=== PATIENT | female | born 1935 | race Caucasian/White ===

== ENCOUNTER 2019-03-13 11:36 | Emergency (ER) | payer MEDICARE ==
[~2019-03-13 11:36] MED LIST: ACET325T51 PO; AMLO1CAP6 PO; CITA20TA17 PO; DOCU250C14 PO; ENOX40DI8 SQ; FERR325T22 PO; MAG360OR93 PO; MULT-1278 PO; OLAN2.5T3 PO; ONDA4TAB4 PO; TYL3 PO
== END 2019-03-13 15:25 | disposition home or self-care (01) ==
LOC: EDH 11:36
DX: S70.02XA Contusion of left hip, initial encounter (principal); S42.202D Unspecified fracture of upper end of left humerus, subsequent encounter for fracture with routine healing; I10 Essential (primary) hypertension; Z96.649 Presence of unspecified artificial hip joint; X58.XXXA Exposure to other specified factors, initial encounter; Y93.89 Activity, other specified; Y92.89 Other specified places as the place of occurrence of the external cause; Y99.8 Other external cause status
CPT/HCPCS: 71045; 73030; 73060; 73502

== ENCOUNTER 2020-12-11 20:16 | Inpatient (IN) | payer MEDICARE ==
[~2020-12-11] VITALS: Ht 149.9 cm; Wt 39.0 kg
[2020-12-11 21:47] LABS: BASOPHILS % (AUTO) 0.4 % (0.0-5.0); EOSINOPHILS % (AUTO) 0.5 % (0.0-8.0); HEMATOCRIT 33.9 % (36-48); LYMPHOCYTES % (AUTO) 21.6 % (21.0-51.0); MEAN CORPUSCULAR HEMOGLOBIN 29.3 pg (27.0-33.0); MEAN CORPUSCULAR HGB CONC 32.2 g/dL (32.0-36.0); MEAN CORPUSCULAR VOLUME 91.1 fL (79-99); MONOCYTES % (AUTO) 14.2 % (3.0-13.0); PLATELET COUNT (AUTO) 319 K/uL (130-400); RED BLOOD CELL COUNT(AUTO) 3.72 MIL/uL (4.00-5.50); RED CELL DISTRIBUTION WIDTH 14.7 % (11.0-15.5); WHITE BLOOD COUNT (AUTO) 7.3 K/uL (4.8-10.8)
[2020-12-11 21:59] LABS: CREATININE 0.8 mg/dL (0.5-1.5)
[2020-12-11 22:04] LABS: ALBUMIN 1.2 g/dL (3.5-5.0); BILIRUBIN,TOTAL 0.3 mg/dL (0.2-1.0); TOTAL PROTEIN, SERUM 5.3 g/dL (6.0-8.3)
[2020-12-11 22:09] LABS: INR 1.18 (0.85-1.15); PARTIAL THROMBOPLASTIN TIME 26.7 SEC (26.3-35.5); PROTHROMBIN TIME 12.2 SEC (9.6-11.6)
[2020-12-11 22:10] LABS: B-TYPE NATRIURETIC PEPTIDE 88 pg/mL (0-100)
[2020-12-11] MEDS ORDERED: ACETAMINOPHEN 325 MG TAB PO PRN ×2 (23:45)
[2020-12-11] MEDS ORDERED: ENOXAPARIN SODIUM 60 MG/0.6 ML SQ ONE (23:50)
[2020-12-12 02:05] VITALS: BP 112/60
[2020-12-12 04:40] VITALS: BP 109/62
[2020-12-12 05:24] LABS: BASOPHILS % (AUTO) 0.5 % (0.0-5.0); EOSINOPHILS % (AUTO) 1.1 % (0.0-8.0); HEMATOCRIT 29.6 % (36-48); LYMPHOCYTES % (AUTO) 24.9 % (21.0-51.0); MEAN CORPUSCULAR HEMOGLOBIN 29.9 pg (27.0-33.0); MEAN CORPUSCULAR HGB CONC 33.4 g/dL (32.0-36.0); MEAN CORPUSCULAR VOLUME 89.4 fL (79-99); NEUTROPHILS % (AUTO) 57.2 % (40.0-77.0); PLATELET COUNT (AUTO) 249 K/uL (130-400); RED BLOOD CELL COUNT(AUTO) 3.31 MIL/uL (4.00-5.50); RED CELL DISTRIBUTION WIDTH 14.8 % (11.0-15.5); WHITE BLOOD COUNT (AUTO) 6.4 K/uL (4.8-10.8)
[2020-12-12 05:54] LABS: BILIRUBIN,TOTAL 0.3 mg/dL (0.2-1.0); CREATININE 0.6 mg/dL (0.5-1.5); POTASSIUM 4.1 mmol/L (3.5-5.1); TOTAL PROTEIN, SERUM 4.5 g/dL (6.0-8.3)
[2020-12-12 08:23] VITALS: BP 116/67
[2020-12-12] MEDS: FAMOTIDINE 20MG VIAL IV SCH ×2 (10:00→19:45)
[2020-12-12] MEDS: ENOXAPARIN SODIUM 80 MG/0.8 ML SQ SCH ×2 (10:00→19:46)
[2020-12-12 12:38] VITALS: BP 118/69
[2020-12-12] MEDS ORDERED: MEGE400O4 PO (14:39)
[2020-12-12] MEDS ORDERED: ALBU1.252 IH (14:39)
[2020-12-12] MEDS ORDERED: FURO40TA5 PO (14:39)
[2020-12-12] MEDS ORDERED: DOCU250C14 PO (14:39)
[2020-12-12] MEDS ORDERED: FERR325T22 PO (14:39)
[2020-12-12] MEDS ORDERED: LISI5TAB21 PO (14:39)
[2020-12-12] MEDS ORDERED: POLY17PO4 PO (14:39)
[2020-12-12] MEDS ORDERED: MAG/ALUM/SIMETH 30 ML UDCUP PO SCH (15:45)
[2020-12-12] MEDS ORDERED: MAG/ALUM/SIMETH 30 ML UDCUP ONE (16:09)
[2020-12-12] MEDS: FERROUS SULFATE 325 MG TABLET.DR PO SCH (16:17)
[2020-12-12 17:17] VITALS: BP 112/73
[2020-12-12 19:25] VITALS: BP 108/63
[2020-12-12] MEDS: DOCUSATE CALCIUM 240 MG CAP PO SCH (19:46)
[2020-12-13] VITALS (8 sets, daily range): BP systolic 74–141; BP diastolic 45–70
[2020-12-13] MEDS: ONDANSETRON 4MG INJ IV PRN (00:12)
[2020-12-13 06:18] LABS: BASOPHILS % (AUTO) 0.4 % (0.0-5.0); EOSINOPHILS % (AUTO) 0.8 % (0.0-8.0); LYMPHOCYTES % (AUTO) 23.4 % (21.0-51.0); MEAN CORPUSCULAR HEMOGLOBIN 29.7 pg (27.0-33.0); MEAN CORPUSCULAR HGB CONC 33.2 g/dL (32.0-36.0); MEAN CORPUSCULAR VOLUME 89.3 fL (79-99); MONOCYTES % (AUTO) 13.6 % (3.0-13.0); NEUTROPHILS % (AUTO) 61.5 % (40.0-77.0); PLATELET COUNT (AUTO) 305 K/uL (130-400); RED BLOOD CELL COUNT(AUTO) 3.47 MIL/uL (4.00-5.50); RED CELL DISTRIBUTION WIDTH 14.7 % (11.0-15.5); WHITE BLOOD COUNT (AUTO) 7.9 K/uL (4.8-10.8)
[2020-12-13 06:31] LABS: CREATININE 0.6 mg/dL (0.5-1.5); POTASSIUM 4.3 mmol/L (3.5-5.1)
[2020-12-13] MEDS ORDERED: FUROSEMIDE 40 MG TABLET PO SCH (09:00)
[2020-12-13] MEDS: FAMOTIDINE 20MG VIAL IV SCH ×2 (09:09→21:09)
[2020-12-13] MEDS: POLYETHYLENE GLYCOL 3350 17 GM POWD.PACK PO SCH (09:09)
[2020-12-13] MEDS: LISINOPRIL 5 MG TABLET PO SCH (09:10)
[2020-12-13] MEDS: DOCUSATE CALCIUM 240 MG CAP PO SCH ×2 (09:10→21:09)
[2020-12-13] MEDS: APIXABAN 5 MG TABLET PO SCH (21:09)
[2020-12-14] VITALS (7 sets, daily range): BP systolic 74–166; BP diastolic 51–70
[2020-12-14] MEDS: LISINOPRIL 5 MG TABLET PO SCH ×2 (09:00→09:38)
[2020-12-14] MEDS: FAMOTIDINE 20MG VIAL IV SCH ×2 (09:37→20:20)
[2020-12-14] MEDS: APIXABAN 5 MG TABLET PO SCH ×2 (09:37→20:20)
[2020-12-14] MEDS: POLYETHYLENE GLYCOL 3350 17 GM POWD.PACK PO SCH (09:38)
[2020-12-14] MEDS: DOCUSATE CALCIUM 240 MG CAP PO SCH ×2 (09:38→19:29)
[2020-12-14] MEDS: FERROUS SULFATE 325 MG TABLET.DR PO SCH (09:38)
[2020-12-14] MEDS: ONDANSETRON 4MG INJ IV PRN (13:56)
[2020-12-14] MEDS ORDERED: 0.9%NACL 1000ML 1,000 ML IV SCH (14:45)
[2020-12-14 15:05] LABS: BASOPHILS % (AUTO) 0.3 % (0.0-5.0); EOSINOPHILS % (AUTO) 0.1 % (0.0-8.0); HEMATOCRIT 36.4 % (36-48); LYMPHOCYTES % (AUTO) 13.4 % (21.0-51.0); MEAN CORPUSCULAR HEMOGLOBIN 29.6 pg (27.0-33.0); MEAN CORPUSCULAR HGB CONC 32.4 g/dL (32.0-36.0); MEAN CORPUSCULAR VOLUME 91.5 fL (79-99); MONOCYTES % (AUTO) 7.4 % (3.0-13.0); NEUTROPHILS % (AUTO) 78.4 % (40.0-77.0); PLATELET COUNT (AUTO) 416 K/uL (130-400); RED BLOOD CELL COUNT(AUTO) 3.98 MIL/uL (4.00-5.50); RED CELL DISTRIBUTION WIDTH 14.9 % (11.0-15.5); WHITE BLOOD COUNT (AUTO) 7.7 K/uL (4.8-10.8)
[2020-12-14 15:36] LABS: CREATININE 1.2 mg/dL (0.5-1.5); POTASSIUM 4.3 mmol/L (3.5-5.1)
[2020-12-14] MEDS ORDERED: DEXTROSE 50%-WATER 50 ML DISP.SYRIN IV ONE (16:17)
[2020-12-14] MEDS ORDERED: DEXTROSE 5 % AND 0.9 % NACL 1,000 ML IV SCH (17:15)
[2020-12-14] MEDS: ZOSYN 3.375GM+NS 50ML 50 ML IV SCH ×2 (18:21→20:43)
[2020-12-14 18:31] LABS: INR 1.48 (0.85-1.15); PARTIAL THROMBOPLASTIN TIME 33.7 SEC (26.3-35.5)
[2020-12-14] MEDS ORDERED: PROMETHAZINE HCL 25 MG/ML 1ML AMPULE IM PRN (20:45)
[2020-12-14] MEDS ORDERED: LACTATED RINGERS 1000ML 1,000 ML IV SCH (22:15)
[2020-12-14] MEDS ORDERED: LACTATED RINGERS 1000ML 1,000 ML IV ONE (22:30)
[2020-12-14] MEDS ORDERED: MORPHINE 2 MG SYG IVP ONE (22:45)
[2020-12-14] MEDS ORDERED: MORPHINE 2 MG SYG ONE (22:49)
[2020-12-15] VITALS: BP 118/50
[2020-12-20] MEDS ORDERED: APIXABAN 2.5 MG TABLET PO SCH ×2 (21:00)
== END 2020-12-15 01:34 | disposition expired | DRG 299 ==
LOC: EDH 20:16 → EDHIP 23:23 → 4BH 12-12 01:47
PROVIDERS: ADMIT Hospitalist; ATTEND Hospitalist
PROC: 0D9670Z Drainage of Stomach with Drainage Device, Via Natural or Artificial Opening (ICD-10-PCS; principal; 2020-12-15)
DX: I82.401 Acute embolism and thrombosis of unspecified deep veins of right lower extremity (principal); E43 Unspecified severe protein-calorie malnutrition; E87.2 Acidosis; J98.11 Atelectasis; K56.609 Unspecified intestinal obstruction, unspecified as to partial versus complete obstruction; N17.9 Acute kidney failure, unspecified; I25.10 Atherosclerotic heart disease of native coronary artery without angina pectoris; I10 Essential (primary) hypertension; F03.90 Unspecified dementia, unspecified severity, without behavioral disturbance, psychotic disturbance, mood disturbance, and anxiety; E86.1 Hypovolemia; K52.9 Noninfective gastroenteritis and colitis, unspecified; R73.9 Hyperglycemia, unspecified; R00.0 Tachycardia, unspecified; Z66 Do not resuscitate; Z74.01 Bed confinement status
CPT/HCPCS: 36415; 70450; 71045; 74176; 80048; 80053; 82948; 83605; 83880; 84145; 85025; 85610; 85730; 86140; 87040; 93005; 93971; C1894; G0378; J1650; J2405; J2543; J3490; J7070; J7120